=== PATIENT | male | born 1975 | race Caucasian/White ===

== ENCOUNTER → 2016-11-08 | Outpatient (CLI) | payer OTHER | LOC: RAD 15:03 | PROVIDERS: ATTEND Nurse Practitioner Family | DX: S61.216A Laceration without foreign body of right little finger without damage to nail, initial encounter (principal); S67.196A Crushing injury of right little finger, initial encounter; X58.XXXA Exposure to other specified factors, initial encounter | CPT/HCPCS: 73130 ==